=== PATIENT | female | born 1960 | race Caucasian/White ===

== ENCOUNTER 2018-10-13 13:42 | Outpatient (REF) | payer MEDICAID, SELFPAY ==
[2018-10-13 22:28] LABS: BUN 20 mg/dL (7-18); CREATININE 0.92 mg/dL (0.55-1.02); Calcium 9.7 mg/dL (8.5-10.1); Chloride 100 mmol/L (98-107); Glucose 91 mg/dL (70-100); Potassium 4.5 mmol/L (3.5-5.1); Sodium 138 mmol/L (136-145)
== END 2018-10-13 14:02 ==
LOC: NCHCN 13:42
PROVIDERS: PCP Nurse Practitioner Family; Visit Provider Family Medicine
DX: I10 Essential (primary) hypertension (principal); R25.2 Cramp and spasm
CPT/HCPCS: 80048; 83735

== ENCOUNTER 2018-11-11 16:57 | Outpatient (REF) | payer MEDICAID, SELFPAY ==
[2018-11-11 21:42] LABS: Abs Immature Grans 0.01 k/cumm (0.0-0.09); Absolute Basophil Count 0.09 k/cumm (0.0-0.2); Absolute Eosinophil Count 0.25 k/cumm (0.0-0.7); Absolute Lymphocyte Count 3.29 k/cumm (1.2-3.4); Absolute Neutrophil Count 5.36 k/cumm (1.2-6.7); Basophils % 0.9; Eosinophils % 2.6; HCT 38.6 % (36.0-46.0); HGB 12.2 g/dL (12.0-15.5); Immature Grans % 0.1; Lymphocytes % 33.6; Mean Corp. HGB Concentration 31.6 g/dL (32.0-36.0); Mean Corpuscular Hemoglobin 29.8 pg (27.0-33.0); Mean Corpuscular Volume 94.4 fL (80-95); Mean Platelet Volume 10.9 fL (8.0-11.0); Monocytes % 8.2; Neutrophils % 54.6; Platelet Count 343 x1000/uL (130-400); RBC 4.09 m/cumm (4.00-5.20); RBC Distribution Width 13.3 % (11.7-14.6)
[2018-11-11 22:14] LABS: Anion Gap 9.7 mmol/L (3-11); BUN 15 mg/dL (7-18); CO2 27.3 mmol/L (21.0-32.0); CREATININE 0.85 mg/dL (0.55-1.02); Chloride 104 mmol/L (98-107); Glucose 92 mg/dL (70-100); Potassium 4.2 mmol/L (3.5-5.1); Sodium 141 mmol/L (136-145)
== END 2018-11-11 17:17 ==
LOC: NCHCN 16:57
PROVIDERS: PCP Nurse Practitioner Family; Visit Provider Family Medicine
DX: Z01.818 Encounter for other preprocedural examination
CPT/HCPCS: 80048; 84443; 85025

== ENCOUNTER 2020-01-04 16:22 | Outpatient (REF) | payer MEDICAID, SELFPAY ==
[2020-01-04 22:09] LABS: Hemoglobin A1C 5.8 % (3.8-5.6)
[2020-01-04 22:19] LABS: Anion Gap 10.6 mmol/L (3-11); BUN 18 mg/dL (7-18); CO2 28.4 mmol/L (21.0-32.0); CREATININE 0.78 mg/dL (0.55-1.02); Calcium 9.6 mg/dL (8.5-10.1); Calculated LDL 118 mg/dL (<100); Chloride 102 mmol/L (98-107); Cholesterol 214 mg/dL (<200); Glucose 105 mg/dL (74-106); HDL Cholesterol 55 mg/dL (40-60); Potassium 4.1 mmol/L (3.5-5.1); Sodium 141 mmol/L (136-145); Triglyceride 206 mg/dL (<150)
== END 2020-01-04 16:42 ==
LOC: NCHCN 16:22
PROVIDERS: PCP Nurse Practitioner Family; Visit Provider Nurse Practitioner Family
DX: I10 Essential (primary) hypertension (principal); E66.9 Obesity, unspecified
CPT/HCPCS: 80048; 80061; 83036

== ENCOUNTER 2020-06-13 10:22 | Outpatient (REF) | payer MEDICARE, MEDICAID, SELFPAY ==
[2020-06-13 13:29] LABS: ALT 39 U/L (14-59); AST 17 U/L (15-37); Alkaline Phosphatase 71 U/L (46-116); Anion Gap 7.8 mmol/L (3-11); BUN 13 mg/dL (7-18); Bilirubin, Total 0.3 mg/dL (0.2-1.0); CO2 28.2 mmol/L (21.0-32.0); CREATININE 0.86 mg/dL (0.55-1.02); Calcium 9.1 mg/dL (8.5-10.1); Calculated LDL 133 mg/dL (<100); Chloride 103 mmol/L (98-107); Cholesterol 233 mg/dL (<200); Glucose 95 mg/dL (74-106); HDL Cholesterol 65 mg/dL (40-60); Potassium 4.5 mmol/L (3.5-5.1); Sodium 139 mmol/L (136-145); Total Protein 7.3 g/dL (6.4-8.2); Triglyceride 175 mg/dL (<150)
[2020-06-13 13:31] LABS: Hemoglobin A1C 5.8 % (<5.7)
[2020-06-14 10:01] LABS: HIV-1/2 Ag & Ab Screen Negative (Negative)
[2020-06-14 10:15] LABS: Hepatitis C Ab w Rflx HCV PCR Negative (Negative)
== END 2020-06-13 10:42 ==
LOC: NCHCN 10:22
PROVIDERS: PCP Nurse Practitioner Family; Visit Provider Nurse Practitioner Family
DX: R73.03 Prediabetes (principal); E78.5 Hyperlipidemia, unspecified; I10 Essential (primary) hypertension; E66.9 Obesity, unspecified; Z11.4 Encounter for screening for human immunodeficiency virus [HIV]; Z11.59 Encounter for screening for other viral diseases
CPT/HCPCS: 80053; 80061; 86803; 87389; 83036

== ENCOUNTER 2020-10-03 14:03 | Outpatient (REF) | payer MEDICARE, MEDICAID, SELFPAY ==
[2020-10-03 21:12] LABS: Abs Immature Grans 0.03 10^3/uL (0.0-0.06); Absolute Eosinophil Count 0.16 10^3/uL (0.0-0.7); Absolute Lymphocyte Count 3.13 10^3/uL (1.2-3.4); Absolute Monocyte Count 0.69 10^3/uL (0.1-0.8); Eosinophils % 1.7; HCT 39.7 % (36.0-46.0); HGB 12.6 g/dL (11.2-15.7); Immature Grans % 0.3; Lymphocytes % 32.6; MCH 29.5 pg (27.0-33.0); MCHC 31.7 % (32.0-36.0); MPV 10.6 fL (8.0-11.0); Monocytes % 7.2; Neutrophils % 57.2; Nucleated RBC 0 %; Platelet Count 322 10^3/uL (130-400); RBC 4.27 10^6/uL (3.93-5.22); RDW 13.1 % (11.7-14.6); RDW-SD 44.4 fL; WBC 9.61 10^3/uL (4.4-10.8)
[2020-10-03 21:24] LABS: ALT 33 U/L (14-59); AST 19 U/L (15-37); Alkaline Phosphatase 86 U/L (46-116); Anion Gap 7.7 mmol/L (3-11); BUN 13 mg/dL (7-18); Bilirubin, Total 0.4 mg/dL (0.2-1.0); CO2 29.3 mmol/L (21.0-32.0); CREATININE 0.8 mg/dL (0.55-1.02); Calculated LDL 55 mg/dL (<100); Chloride 103 mmol/L (98-107); Cholesterol 150 mg/dL (<200); Glucose 110 mg/dL (74-106); HDL Cholesterol 63 mg/dL (40-60); Potassium 4.5 mmol/L (3.5-5.1); Sodium 140 mmol/L (136-145); Total Protein 7.3 g/dL (6.4-8.2); Triglyceride 163 mg/dL (<150)
== END 2020-10-03 14:04 | disposition home or self-care (01) ==
LOC: NCHCN 14:03
PROVIDERS: PCP Nurse Practitioner Family; Visit Provider Nurse Practitioner Family
DX: E78.5 Hyperlipidemia, unspecified (principal); Z00.00 Encounter for general adult medical examination without abnormal findings
CPT/HCPCS: 80053; 80061; 85025

== ENCOUNTER 2021-06-12 12:20 | Outpatient (REF) | payer MEDICARE, MEDICAID, SELFPAY ==
[2021-06-12 16:05] LABS: HCT 40.1 % (36.0-46.0); HGB 12.6 g/dL (11.2-15.7); MCHC 31.4 % (32.0-36.0); MCV 92.2 fL (80-95); MPV 10.8 fL (8.0-11.0); Platelet Count 322 10^3/uL (130-400); RBC 4.35 10^6/uL (3.93-5.22); RDW 12.7 % (11.7-14.6); WBC 10.42 10^3/uL (4.4-10.8)
[2021-06-12 16:56] LABS: Anion Gap 8.6 mmol/L (3-11); BUN 11 mg/dL (7-18); CO2 28.4 mmol/L (21.0-32.0); CREATININE 0.8 mg/dL (0.55-1.02); Calcium 9.7 mg/dL (8.5-10.1); Chloride 101 mmol/L (98-107); Glucose 104 mg/dL (74-106); Potassium 4.4 mmol/L (3.5-5.1); Sodium 138 mmol/L (136-145)
== END 2021-06-12 12:21 | disposition home or self-care (01) ==
LOC: LBN 12:20
PROVIDERS: PCP Nurse Practitioner Family; Visit Provider Orthopaedic Surgery
DX: Z01.818 Encounter for other preprocedural examination (principal)
CPT/HCPCS: 80048; 85027

== ENCOUNTER 2021-12-27 15:23 | Outpatient (REF) | payer MEDICARE, MEDICAID, SELFPAY ==
[2021-12-27 20:59] LABS: Abs Immature Grans 0.03 10^3/uL (0.0-0.06); Absolute Lymphocyte Count 2.78 10^3/uL (1.2-3.4); Absolute Monocyte Count 0.75 10^3/uL (0.1-0.8); Absolute Neutrophil Count 5.99 10^3/uL (1.2-6.7); HCT 37.3 % (36.0-46.0); Immature Grans % 0.3; Lymphocytes % 27.9; MCH 29.1 pg (27.0-33.0); MCHC 32.2 % (32.0-36.0); MCV 90 fL (80-95); MPV 10.9 fL (8.0-11.0); Monocytes % 7.5; Neutrophils % 60.3; Platelet Count 337 10^3/uL (130-400); RBC 4.13 10^6/uL (3.93-5.22); RDW 13.3 % (11.7-14.6); RDW-SD 43.8 fL; WBC 9.95 10^3/uL (4.4-10.8)
[2021-12-27 21:18] LABS: ALT 34 U/L (14-59); AST 23 U/L (15-37); Alkaline Phosphatase 88 U/L (46-116); Anion Gap 7.8 mmol/L (3-11); BUN 15 mg/dL (7-18); Bilirubin, Total 0.4 mg/dL (0.2-1.0); CO2 28.2 mmol/L (21.0-32.0); CREATININE 0.7 mg/dL (0.55-1.02); Calcium 9.6 mg/dL (8.5-10.1); Calculated LDL 55 mg/dL (<100); Chloride 101 mmol/L (98-107); Cholesterol 144 mg/dL (<200); Glucose 110 mg/dL (74-106); HDL Cholesterol 62 mg/dL (40-60); Potassium 4.1 mmol/L (3.5-5.1); Sodium 137 mmol/L (136-145); TSH (W/Ref FT4) 1.48 uIU/mL (0.36-3.74); Total Protein 7.8 g/dL (6.4-8.2); Triglyceride 136 mg/dL (<150)
== END 2021-12-27 15:24 | disposition home or self-care (01) ==
LOC: NCHCN 15:23
PROVIDERS: PCP Nurse Practitioner Family; Visit Provider Nurse Practitioner Family
DX: E78.5 Hyperlipidemia, unspecified (principal); R73.03 Prediabetes; E66.9 Obesity, unspecified; I10 Essential (primary) hypertension
CPT/HCPCS: 80053; 80061; 84443; 85025

== ENCOUNTER → 2022-03-22 00:58 | Outpatient (CLI) | payer MEDICARE, MEDICAID, SELFPAY ==
--- NOTE | 2022-03-22 09:40 | DI.RAD_ITS ---
Exam(s) RF BARIUM SWALLOW EXAM: RF BARIUM SWALLOW CLINICAL HISTORY: Dysphagia,r13.10 TECHNIQUE: 2D and realtime digital imaging was performed. CONTRAST MATERIAL: Oral barium contrast was administered. COMPARISON: No exams were available for comparison FINDINGS: CHEST X-RAY: The heart and pulmonary vasculature are within normal limits. The lungs are clear. No pl eural effusion or pneumothorax is present. The bones are within normal limits for the patient's age. ESOPHAGRAM: The esophagus is patent with no evidence for erosions, fold thickening, strictures, or ma sses. With regards to the motility, there is a normal primary stripping wave. There was no aspiration or penetration during the examination. There is a small hiatal hernia. No gastroesophageal reflux was identified during the examination. A barium tablet passed into the stomach without difficulty. IMPRESSION: Small hiatal hernia. RADIATION DOSE DELIVERED: ravin Brooks=34.6 mGy
[2022-03-22] MEDS: Barium Sulfate 60% W/V 355 ML BTL PO (10:01)
[2022-03-22] MEDS: Barium Sulfate 700 MG TAB PO (10:03)
== END ==
PROVIDERS: PCP Nurse Practitioner Family; Visit Provider Registered Nurse Maternal Newborn
DX: R13.10 Dysphagia, unspecified (principal); K44.9 Diaphragmatic hernia without obstruction or gangrene
CPT/HCPCS: 74221

== ENCOUNTER 2022-12-17 09:15 | Outpatient (REF) | payer MEDICARE, MEDICAID, SELFPAY ==
[2022-12-17 14:26] LABS: Abs Immature Grans 0.04 10^3/uL (0.0-0.06); Absolute Basophil Count 0.12 10^3/uL (0.0-0.2); Absolute Eosinophil Count 0.24 10^3/uL (0.0-0.7); Absolute Lymphocyte Count 3.65 10^3/uL (1.2-3.4); Absolute Monocyte Count 0.88 10^3/uL (0.1-0.8); Absolute Neutrophil Count 5.46 10^3/uL (1.2-6.7); Basophils % 1.2; Eosinophils % 2.3; HCT 41.1 % (36.0-46.0); HGB 12.7 g/dL (11.2-15.7); Immature Grans % 0.4; Lymphocytes % 35.1; MCH 28.7 pg (27.0-33.0); MCHC 30.9 % (32.0-36.0); MCV 93 fL (80-95); MPV 10.5 fL (8.0-11.0); Monocytes % 8.5; Neutrophils % 52.5; Platelet Count 325 10^3/uL (130-400); RBC 4.43 10^6/uL (3.93-5.22); RDW 13.7 % (11.7-14.6); RDW-SD 46.8 fL; WBC 10.39 10^3/uL (4.4-10.8)
[2022-12-17 15:31] LABS: Hemoglobin A1C 5.9 % (<5.7)
[2022-12-17 15:43] LABS: ALT 37 U/L (14-59); AST 25 U/L (15-37); Albumin 3.8 g/dL (3.4-5.0); Alkaline Phosphatase 90 U/L (46-116); Anion Gap 7.8 mmol/L (3-11); BUN 14 mg/dL (7-18); Bilirubin, Total 0.6 mg/dL (0.2-1.0); CO2 29.2 mmol/L (21.0-32.0); CREATININE 0.9 mg/dL (0.55-1.02); Calcium 9.4 mg/dL (8.5-10.1); Calculated LDL 47 mg/dL (<100); Chloride 103 mmol/L (98-107); Cholesterol 149 mg/dL (<200); Estimated GFR 71.39 (mL/min/1.73m2); Glucose 123 mg/dL (74-106); HDL Cholesterol 71 mg/dL (40-60); Potassium 4.4 mmol/L (3.5-5.1); Sodium 140 mmol/L (136-145); Total Protein 7.4 g/dL (6.4-8.2); Triglyceride 156 mg/dL (<150)
== END 2022-12-17 09:16 | disposition home or self-care (01) ==
LOC: NCHCN 09:15
PROVIDERS: PCP Nurse Practitioner Family; Visit Provider Family Medicine
DX: Z00.00 Encounter for general adult medical examination without abnormal findings (principal); E66.9 Obesity, unspecified; E78.5 Hyperlipidemia, unspecified; R73.03 Prediabetes
CPT/HCPCS: 80053; 80061; 83036; 85025

== ENCOUNTER 2024-01-20 14:46 | Outpatient (REF) | payer MEDICARE, SELFPAY ==
[2024-01-20 22:16] LABS: Abs Immature Grans 0.02 10^3/uL (0.0-0.06); Absolute Basophil Count 0.09 10^3/uL (0.0-0.2); Absolute Eosinophil Count 0.19 10^3/uL (0.0-0.7); Absolute Lymphocyte Count 2.67 10^3/uL (1.2-3.4); Absolute Monocyte Count 0.55 10^3/uL (0.1-0.8); Absolute Neutrophil Count 4.26 10^3/uL (1.2-6.7); Basophils % 1.2 %; Eosinophils % 2.4 %; HCT 37.8 % (36.0-46.0); Immature Grans % 0.3 %; Lymphocytes % 34.3 %; MCH 28.6 pg (27.0-33.0); MCHC 31.7 % (32.0-36.0); MCV 90 fL (80-95); MPV 10.9 fL (8.0-11.0); Monocytes % 7.1 %; Neutrophils % 54.7 %; Platelet Count 299 10^3/uL (130-400); RDW 13.4 % (11.7-14.6); RDW-SD 43.8 fL; WBC 7.78 10^3/uL (4.4-10.8)
[2024-01-20 22:35] LABS: ALT 35 U/L (14-59); AST 19 U/L (15-37); Albumin 3.6 g/dL (3.4-5.0); Alkaline Phosphatase 110 U/L (46-116); Anion Gap 7.5 mmol/L (3-11); BUN 13 mg/dL (7-18); Bilirubin, Total 0.32 mg/dL (0.2-1.0); CO2 28.5 mmol/L (21.0-32.0); CREATININE 0.8 mg/dL (0.55-1.02); Calcium 9.5 mg/dL (8.5-10.1); Calculated LDL 67 mg/dL (<100); Chloride 105 mmol/L (98-107); Cholesterol 150 mg/dL (<200); Estimated GFR 81.72 (mL/min/1.73m2); Glucose 107 mg/dL (74-106); HDL Cholesterol 60 mg/dL (40-60); Potassium 4.3 mmol/L (3.5-5.1); Sodium 141 mmol/L (136-145); Total Protein 7.3 g/dL (6.4-8.2); Triglyceride 119 mg/dL (<150)
[2024-01-20 22:40] LABS: Hemoglobin A1C 6.1 % (<5.7)
== END 2024-01-20 14:47 | disposition home or self-care (01) ==
LOC: NCHCN 14:46
PROVIDERS: PCP Nurse Practitioner Family; Visit Provider Physician Assistant
DX: I10 Essential (primary) hypertension (principal); R73.03 Prediabetes
CPT/HCPCS: 80053; 80061; 83036; 85025